=== PATIENT | male | born 1985 | race Caucasian/White ===

== ENCOUNTER 2021-07-16 14:22 | Outpatient (REF) | payer SELFPAY ==
[2021-07-18 15:26] LABS: COVID-19 RT-PCR UVMMC Result Negative (Negative)
== END 2021-07-16 14:23 | disposition home or self-care (01) ==
LOC: NCHCN 14:22
PROVIDERS: PCP Physician Assistant Medical; Visit Provider Nurse Practitioner Family
DX: Z20.822 Contact with and (suspected) exposure to COVID-19 (principal)
CPT/HCPCS: U0003

== ENCOUNTER 2022-09-12 18:48 | Outpatient (REF) | payer BC, SELFPAY ==
[2022-09-12 19:19] LABS: ALT 64 U/L (16-63); AST 23 U/L (15-37); Alkaline Phosphatase 99 U/L (46-116); Anion Gap 4.7 mmol/L (3-11); BUN 24 mg/dL (7-18); Bilirubin, Total 0.5 mg/dL (0.2-1.0); CO2 27.3 mmol/L (21.0-32.0); CREATININE 1.1 mg/dL (0.70-1.30); Calcium 9.4 mg/dL (8.5-10.1); Chloride 103 mmol/L (98-107); Estimated GFR 88.67 (mL/min/1.73m2); Glucose 232 mg/dL (74-106); Potassium 4.1 mmol/L (3.5-5.1); Sodium 135 mmol/L (136-145); Total Protein 7.9 g/dL (6.4-8.2)
== END 2022-09-12 18:49 | disposition home or self-care (01) ==
LOC: NCHCN 18:48
PROVIDERS: PCP Physician Assistant Medical; Visit Provider Physician Assistant
DX: E11.9 Type 2 diabetes mellitus without complications (principal)
CPT/HCPCS: 80053

== ENCOUNTER 2023-09-23 11:27 | Outpatient (REF) | payer SELFPAY ==
[2023-09-23 21:18] LABS: Abs Immature Grans 0.04 10^3/uL (0.0-0.06); Absolute Basophil Count 0.07 10^3/uL (0.0-0.2); Absolute Eosinophil Count 0.05 10^3/uL (0.0-0.7); Absolute Lymphocyte Count 1.36 10^3/uL (1.2-3.4); Absolute Monocyte Count 0.65 10^3/uL (0.1-0.8); Absolute Neutrophil Count 5.25 10^3/uL (1.2-6.7); Basophils % 0.9 %; Eosinophils % 0.7 %; HCT 46.4 % (40.0-50.0); HGB 16.2 g/dL (13.5-17.5); Immature Grans % 0.5 %; Lymphocytes % 18.3 %; MCH 29.8 pg (27.0-33.0); MCHC 34.9 % (32.0-36.0); MCV 85 fL (80-95); MPV 9.9 fL (8.0-11.0); Monocytes % 8.8 %; Neutrophils % 70.8 %; Platelet Count 268 10^3/uL (130-400); RBC 5.44 10^6/uL (4.36-5.78); RDW 13.3 % (11.8-14.1); RDW-SD 40.7 fL; WBC 7.42 10^3/uL (4.4-10.8)
[2023-09-23 21:34] LABS: ALT 54 U/L (16-63); AST 32 U/L (15-37); Albumin 3.8 g/dL (3.4-5.0); Alkaline Phosphatase 102 U/L (46-116); Anion Gap 8.6 mmol/L (3-11); BUN 15 mg/dL (7-18); Bilirubin, Total 0.6 mg/dL (0.2-1.0); CO2 24.4 mmol/L (21.0-32.0); CREATININE 0.9 mg/dL (0.70-1.30); Calcium 8.7 mg/dL (8.5-10.1); Chloride 103 mmol/L (98-107); Estimated GFR 112.11 (mL/min/1.73m2); Glucose 247 mg/dL (74-106); Potassium 4.3 mmol/L (3.5-5.1); Sodium 136 mmol/L (136-145); Total Protein 7.6 g/dL (6.4-8.2)
== END 2023-09-23 11:28 | disposition home or self-care (01) ==
LOC: NCHCN 11:27
PROVIDERS: PCP Physician Assistant Medical; Visit Provider Physician Assistant
DX: E11.9 Type 2 diabetes mellitus without complications (principal)
CPT/HCPCS: 80053; 85025